=== PATIENT | male | born 1940 | race Caucasian/White ===

== ENCOUNTER 2017-05-25 09:31 | Inpatient (IN) | payer OTHER ==
[~2017-05-25] VITALS: Ht 172.7 cm; Wt 86.6 kg
[~2017-05-25 09:31] MED LIST: ANTIVERT/2525 MG PO; ASPIRIN EC81 M1 PO; CARVEDILOL12.5 M1 PO; DIO80 PO; GLIPIZIDE5 MG PO; METFORMIN500 M1 PO; PIOGLITAZONE30 M1 PO; PLAVIX75 MG PO
--- NOTE | 2017-05-25 10:31 | NUR ---
patient is a 77-year-old male brought in by daughter to be evaluated for the chief complaint of anxiety for the past five days. Patient reports that every night for the past five days when he tries to go to sleep he is constantly thinking and it causes him anxiety. Medical screen exam was completed by Dr. Bird. The patient is reassured of his well-being. Patient is in direct observation of the nurses station and is being closely monitored. Patient's daughter is at bedside with the patient.
[2017-05-25 10:57] LABS: BASOPHIL % 0.5 % (0-2); PLATELET COUNT 206 x10^3mcL (130-400)
--- NOTE | 2017-05-25 10:57 | NUR ---
patient is resting in a position of comfort and in low positioned bed with side rails up x 2 and call light within reach.
[2017-05-25 11:07] LABS: microscopic required? NO
[2017-05-25 11:46] LABS: CALCIUM 8.6 mg/dL (8.5-10.1); CARBON DIOXIDE 22.6 mmol/L (21-32); CHLORIDE SERUM 106 mmol/L (98-107); CREATININE SERUM 1.7 mg/dL (0.7-1.3); GLUCOSE SERUM 385 mg/dL (74-106); POTASSIUM SERUM 4.9 mmol/L (3.5-5.1); SODIUM SERUM 138 mmol/L (136-145)
[2017-05-25 12:00] LABS: ALBUMIN 3.6 g/dL (3.4-5.0); ALKALINE PHOSPHATASE 69 U/L (46-116); ALT/SGPT 21 U/L (16-63); AST/SGOT 16 U/L (15-37); BILIRUBIN TOTAL 0.78 mg/dL (0.20-1.00); TOTAL PROTEIN, SERUM 6.8 g/dL (6.4-8.2)
[2017-05-25 12:21] LABS: urine erythrocyte NEGATIVE (NEGATIVE)
--- NOTE | 2017-05-25 12:54 | NUR ---
PT REMAINS RESTING IN A POSITION OF COMFORT IN LOW POSITIONED BED WITH SIDE RAILS UP X 2 AND CALL LIGHT WITHIN REACH.
--- NOTE | 2017-05-25 12:59 | NUR ---
REPORT CALLED TO TERESA GHOTRA TO ASSUME CARE FOR THIS PT POST TRANSFER FROM ED TO TELE UNIT.
--- NOTE | 2017-05-25 13:04 | NUR ---
MED REC COMPLETED USING BAG OF MEDS BROUGHT IN BY PT.
[2017-05-25] MEDS ORDERED: CORE25 PO (13:34)
[2017-05-25 13:35] VITALS: BP 148/76
--- NOTE | 2017-05-25 13:35 | NUR ---
ADMITTED PT TO FLOOR WITH [facility], PT IS A/A/OX4 DENIES BEAR. RESP EVEN AND UNLABORED WITH CLEAR BS BILAT. DENIES ANY SOB/CP/PRESSURE AT THIS TIME PLACED ON TELE #20 SHOWING NSR HR 60. PT WITH HX OF PACER AND ND WITH STENTS. NOTED WITH +1 EDEMA TO BLE. IV TO LAC. ABD SOFT, OBESE, NONTENDER WITH ACTIVE BS X4. DENIES ANY N/V AT THIS TIME. VOIDING FREELY. AMBULATORY. ORIENTED TO ROOM AND CALL LIGHT SYSTEM. CALL LIGHT IN REACH NEEDS ATTENDED TO.
[2017-05-25 13:38] LABS: MAGNESIUM 2.5 mg/dL (1.8-2.4); PHOSPHOROUS 3.3 mg/dL (2.5-4.9)
[2017-05-25 13:41] LABS: CHOLESTEROL/HDL RATIO 6.2
[2017-05-25 13:48] LABS: T3 TOTAL 0.91 ng/mL
--- NOTE | 2017-05-25 14:50 | NUR ---
NOTED ORDER TO INCREASE IVF TO NS 150ML/HR. IV FLUIDS INCREASED ORDERED. WILL CONT TO MONITOR.
[2017-05-25 15:13] VITALS: BP 148/76
[2017-05-25 15:41] LABS: FREE T4 1.15 ng/dL (0.76-1.46); FREE THYROXINE INDEX 3.7 ug/dL (1.4-4.5); T4(THYROXINE) 10.1 ug/dL (4.7-13.3)
--- NOTE | 2017-05-25 17:12 | NUR ---
DR. ACUNA MADE AWARE OF BS 88, INQUIRE IF MD WOULD LIKE PT TO RECEIVE BOTH GLIPIZIDE AND METFORMIN, PER MD OK TO GIVE AFTER DINNER. WILL CONT TO MONITOR.
[2017-05-25 17:33] VITALS: BP 150/74
--- NOTE | 2017-05-25 18:24 | NUR ---
PT RESTING COMFORTABLY AT THIS TIME. WITH FAMILY AT BEDSIDE. DENIES ANY DISCOMFORT. CALL LIGHT IN REACH NEEDS ATTENDED TO.
--- NOTE | 2017-05-25 19:30 | NUR ---
RECEIVED REPORT FROM TERESA GHOTRA. PT RESTING IN BED COMFORTABLY IN NO ACUTE DISTRESS OR DISCOMFORT. AAOX4. DENIES OF BEAR/DIZZINESS, ON TELE MON 20 SR. DENIES OF ANY CHEST DISCOMFORT. PER PULSES STRONG. +1 BLE EDEMA. IN RA WITH SAT OF 97%. BREATHING EVENLY AND UNLABORED. NO SOB NOTED. LUNGS CTA. BS ACTIVE. ABD SOFT AND NON DISTENDED. VOIDS FREELY IN THE URINAL. AMBULATES STEADILY. SKIN DRY AND INTACT. DENIES OF ANY PAIN AT THIS TIME. IV ON LAC PATENT. SAFETY MEASURES ENSURED. INSTRUCTED PT TO CALL FOR ANY NEEDS/ASSISTANCE. CALL LIGHT WITHIN REACH. WILL CONT TO MONITOR PT.
[2017-05-25 21:08] VITALS: BP 138/66
--- NOTE | 2017-05-26 05:03 | NUR ---
PT SLEPT COMFORTABLY THROUGH OUT THE NIGHT. WAS IN NO ACUTE DISTRESS OR DISCOMFORT. SAFETY MEASURES WERE ENSURED. CALL LIGHT WITHIN REACH.
[2017-05-26 05:35] VITALS: BP 139/72
[2017-05-26 06:58] LABS: BASOPHIL % 0.4 % (0-2); PLATELET COUNT 196 x10^3mcL (130-400)
[2017-05-26 07:03] LABS: CALCIUM 8.2 mg/dL (8.5-10.1); CARBON DIOXIDE 23.6 mmol/L (21-32); CHLORIDE SERUM 113 mmol/L (98-107); CREATININE SERUM 1.3 mg/dL (0.7-1.3); GLUCOSE SERUM 84 mg/dL (74-106); MAGNESIUM 2.2 mg/dL (1.8-2.4); SODIUM SERUM 142 mmol/L (136-145)
--- NOTE | 2017-05-26 07:20 | NUR ---
RECEIVED PT IN BED A/A/OX4 DENIES BEAR. RESP EVEN AND UNLABORED WITH CLEAR BS BILAT. DENIES ANY SOB/CP/PRESSURE. NSR ON TELE WITH ONDEMAND PACING. NOTED TRACE EDEMA TO BLE. ABD SOFT, NONTENDER WITH ACTIVE BS X4. DENIES ANY N/V AT THIS TIME. VOIDING FREELY USING URINAL. AMBULATORY. CALL LIGHT IN REACH NEED ATTENDED TO.
[2017-05-26 09:28] VITALS: BP 142/66
--- NOTE | 2017-05-26 10:10 | NUR ---
FAMILY AT BEDSIDE UPDATED ON CONDITION OVERNIGHT MADE AWARE D/C POSSIBLY TOMORROW. WILL CONT TO MONITOR.
--- NOTE | 2017-05-26 12:41 | NUR ---
DR. HAYES SPOKE WITH NIECE ILA/PT AND OTHER FAMILY MEMBER AT BEDSIDE, THEY WERE MADE AWARE PT WILL BE PLACED ON FLUID RESTRICTION PART OF HER WORKUP FOR REBEKAH, EXPLAINED CONDITION AND IN REGARDS TO HER ELECTROLYTE IMBALANCED. FAMILY VERBALIZED UNDERSTANDING. SPOKE WITH MD OUTSIDE AND MADE AWARE PT HAS HAD PLENTY OF FLUIDS TODAY AND DUE TO HIGH FLUID VOLUME ON RIDERS AND IVPB AND AMOUNT ALREADY TAKEN PT WILL GO ABOVE THE 1500ML HE IS REQUESTING. NO FURTHER ORDERS AT THIS TIME.
[2017-05-26 13:43] VITALS: BP 141/68
--- NOTE | 2017-05-26 15:00 | NUR ---
PT RESTING COMFORTABLY AT THIS TIME. DENIES ANY DISCOMFORT. CALL LIGHT IN REACH NEEDS ATTENDED TO.
[2017-05-26 17:09] VITALS: BP 145/68
--- NOTE | 2017-05-26 18:40 | NUR ---
PT RESTING WITH FAMILY AT BEDSIDE, DENIES ANY DISCOMFORT. CALL LIGHT IN REACH NEEDS ATTENDED TO.
--- NOTE | 2017-05-26 19:30 | NUR ---
RECEIVED REPORT FROM TERESA GHOTRA. PT RESTING IN BED COMFORTABLY IN NO ACUTE DISTRESS OR DISCOMFORT. AAOX4. DENIES OF BEAR/DIZZINESS. ON TELE MON 20 PACED ON DEMAND. DENIES OF ANY CHEST DISCOMFORT. PER PULSES MOD. TRACE EDEMA ON BLE. IN RA WITH SAT OF 99%. BREATHING EVENLY AND UNLABORED. NO SOB NOTED. LUNGS CTA. BS ACTIVE. ABD SOFT AND NON DISTENDED. LAST BM TODAY FORMED STOOL PER PT. VOIDS FREELY IN THE URINAL. AMBULATES STEADILY. SKIN DRY AND INTACT. DENIES OF ANY PAIN AT THIS TIME. IV ON LAC PATENT. SAFETY MEASURES ENSURED. INSTRUCTED PT TO CALL FOR ANY NEEDS/ASSISTANCE. CALL LIGHT WITHIN REACH. WILL CONT TO MONITOR PT.
[2017-05-26 21:29] VITALS: BP 124/3; BP 124/53
--- NOTE | 2017-05-27 05:03 | NUR ---
PT SLEPT COMFORTABLY THROUGH OUT THE NIGHT. WAS IN NO ACUTE DISTRESS OR DISCOMFORT. SAFETY MEASURES ENSURED. CALL LIGHT WIHIN REACH.
[2017-05-27 05:13] VITALS: BP 135/56
[2017-05-27 06:52] LABS: CALCIUM 8.7 mg/dL (8.5-10.1); CARBON DIOXIDE 24.8 mmol/L (21-32); CHLORIDE SERUM 112 mmol/L (98-107); CREATININE SERUM 1.5 mg/dL (0.7-1.3); GLUCOSE SERUM 98 mg/dL (74-106); MAGNESIUM 2.1 mg/dL (1.8-2.4); PHOSPHOROUS 4.1 mg/dL (2.5-4.9); SODIUM SERUM 144 mmol/L (136-145)
--- NOTE | 2017-05-27 07:42 | NUR ---
RECEIVED SLEEPING BUT AROUSABLE, IN NO ACUTE DISTRESS. VS WNL. NO C/O PAIN OR DISCOMFORT AT THIS TIME. CALL LIGHT WITHIN REACH. WILL CONTINUE W/PLAN OF CARE.
--- NOTE | 2017-05-27 08:28 | NUR ---
AM ROUNDS DONE BY AND MEDICAL TEAM. PLAN TO DC HOME TODAY. PT AGREED WITH PLAN.
[2017-05-27 08:58] VITALS: BP 143/66
[2017-05-27 11:56] VITALS: BP 143/66
[2017-05-27] MEDS ORDERED: CLOPIDOGREL75 M1 PO (12:10)
[2017-05-27] MEDS ORDERED: DIO80 PO (12:10)
[2017-05-27] MEDS ORDERED: GLU5 PO (12:10)
[2017-05-27] MEDS ORDERED: LIPI20 PO (12:10)
[2017-05-27] MEDS ORDERED: MECLIZINE HYDRO25 M1 PO (12:10)
[2017-05-27] MEDS ORDERED: CORE25 PO (12:10)
[2017-05-27] MEDS ORDERED: ASPIR 8181 MG PO (12:14)
[2017-05-27 12:20] VITALS: BP 150/69
--- NOTE | 2017-05-27 13:25 | NUR ---
PT DC'D HOME IN NO DISTRESS, AWAKE ALERT AND ORIENTED. NO CHANGES IN VS. NO C/O PAIN OR DISCOMFORT. DC INSTRUCTIONS REVIEWED WITH PT AND FAMILY. NO RX GIVEN, PT TO F/U WITH PCP AND CONTINUE WITH PRE-HOSPITAL MEDS. THEY BOTH VERBALIZED UNDERSTANDING. HL REMOVED AND SITE CLEAR. PERSONAL BELONGINGS TAKEN HOME.
== END 2017-05-27 13:17 | disposition home or self-care (01) | DRG 291 ==
LOC: ED 09:31 → DU 12:36
PROVIDERS: Emergency Medicine; ADMIT Family Medicine
DX: I11.0 Hypertensive heart disease with heart failure (principal); J96.00 Acute respiratory failure, unspecified whether with hypoxia or hypercapnia; N17.0 Acute kidney failure with tubular necrosis; I50.43 Acute on chronic combined systolic (congestive) and diastolic (congestive) heart failure; E11.65 Type 2 diabetes mellitus with hyperglycemia; E11.51 Type 2 diabetes mellitus with diabetic peripheral angiopathy without gangrene; F41.9 Anxiety disorder, unspecified; E78.5 Hyperlipidemia, unspecified; I25.2 Old myocardial infarction; Z68.29 Body mass index [BMI] 29.0-29.9, adult; Z95.0 Presence of cardiac pacemaker; Z95.5 Presence of coronary angioplasty implant and graft; Z79.84 Long term (current) use of oral hypoglycemic drugs; Z79.82 Long term (current) use of aspirin
CPT/HCPCS: 36600; 82962; 83880; 84439; J0696; J1815; J2060; J7030; J8597; Q0092

== ENCOUNTER 2019-10-07 19:47 | Emergency (ER) | payer OTHER ==
[~2019-10-07] VITALS: Ht 162.6 cm; Wt 78.9 kg
[~2019-10-07 19:47] MED LIST changes: +ASPIR 8181 MG PO; +CLINDAMYCIN HC300 MG PO; +CLOPIDOGREL75 M1 PO; +CORE25 PO; +GLU5 PO; +LAC PO; +LEVAQUIN750 MG PO; +LIPI20 PO; +MECLIZINE HYDRO25 M1 PO; +METFORMIN HYDR500 M1; +NOR10T PO
[2019-10-07 21:54] LABS: BASOPHIL % 0.5 % (0-2); PLATELET COUNT 231 x10^3mcL (130-400); RED CELL DISTRIBUTION WIDTH 17.9 % (11.5-14.5)
[2019-10-08 00:02] VITALS: BP 120/65
== END 2019-10-08 00:02 | disposition home or self-care (01) ==
LOC: ED 19:47
PROVIDERS: Emergency Medicine
DX: S30.1XXA Contusion of abdominal wall, initial encounter (principal); I10 Essential (primary) hypertension; E11.9 Type 2 diabetes mellitus without complications; E78.00 Pure hypercholesterolemia, unspecified; Z95.0 Presence of cardiac pacemaker; Z98.890 Other specified postprocedural states; X58.XXXA Exposure to other specified factors, initial encounter; Y93.89 Activity, other specified; Y92.89 Other specified places as the place of occurrence of the external cause; Y99.8 Other external cause status
CPT/HCPCS: 36415; Q0092